=== PATIENT | male | born 1935 | race Caucasian/White ===

== ENCOUNTER → 2020-06-13 | Outpatient (CLI) | payer OTHER ==
[~2020-06-13] MED LIST: ACET325 PO; AMIODARONE HCL400 M2 PO; Amiodarone HCl200 MG PO; CEPH500 PO; Doxycycline Mo100 M1 PO; ELIQUIS5 M3 PO; ELIQUIS5 MG PO; FUROSEMIDE20 MG PO; KLOR-CON 1010 ME2 PO; METO50 PO; MIDO5 PO; PRED20 PO; PREDNISOLONE SO10 MG PO
[2020-06-13 13:13] LABS: Mean Corpuscular HGB 30.7 pg (26.0-34.0); Mean Corpuscular HGB Conc 31.6 g/dL (31.5-36.5); Mean Corpuscular Volume 97 fL (80-100); Mean Platelet Volume 9.5 fL (9.1-12.4); Platelet Count 291 K/mm3 (150-400); RDW Coefficient Variation 15.5 % (11.7-14.2); RDW Standard Deviation 55.8 fL (35.1-46.3); Red Blood Cell Count 3.91 M/mm3 (4.30-5.90); White Blood Cell Count 27.01 K/mm3 (4.00-11.30)
[2020-06-13 13:42] LABS: Albumin, Blood 2.8 g/dL (3.4-5.0); Albumin/Globulin Ratio 0.8 (0.8-1.8); Bilirubin, Total 0.6 mg/dL (0.1-1.0); Bun/Creatinine Ratio 16.5 (12.0-20.0); Calcium, Blood 9.1 mg/dL (8.5-10.1); Creatinine, Blood 1.33 mg/dL (0.60-1.20); Globulin, Blood 3.5 g/dL (2.2-4.0); Potassium, Blood 4.5 mmol/L (3.5-5.5); Total Protein, Blood 6.3 g/dL (6.4-8.2)
[2020-06-13 14:04] LABS: BASOPHILS ABSOLUTE MAN 0.27 K/mm3 (0.00-0.23); BASOPHILS PERCENT MAN 1 % (0-2); EOSINOPHILS PERCENT MAN 0 % (0-6); LYMPHOCYTES ABSOLUTE MAN 20.52 K/mm3 (0.84-5.20); LYMPHOCYTES PERCENT MAN 76 % (21-46); MONOCYTES ABSOLUTE MAN 1.35 K/mm3 (0.16-1.47); MONOCYTES PERCENT MAN 5 % (4-13); NEUTROPHILS ABSOLUTE MAN 4.86 K/mm3 (1.96-9.15); SEG NEUTROPHILS PERCENT MAN 18 % (41-73); TOTAL CELLS COUNTED 100
== END | disposition home or self-care (01) ==
LOC: PLD 12:46 → LAB SHORT 12:46
PROVIDERS: Physician Assistant
DX: D72.829 Elevated white blood cell count, unspecified (principal); R10.84 Generalized abdominal pain; R19.07 Generalized intra-abdominal and pelvic swelling, mass and lump; K46.0 Unspecified abdominal hernia with obstruction, without gangrene
CPT/HCPCS: 80053; 83690; 85025; 87077; 87086; 87186

== ENCOUNTER 2020-09-21 14:47 | Emergency (ER) | payer OTHER ==
[~2020-09-21] VITALS: Ht 177.8 cm; Wt 68.0 kg
[2020-09-21] MEDS ORDERED: PRED20 PO (15:20)
[2020-09-21] MEDS ORDERED: KLOR-CON 1010 ME2 PO (15:21)
[2020-09-21] MEDS ORDERED: FUROSEMIDE20 MG PO (15:21)
[2020-09-21 16:20] LABS: Hematocrit 30.9 % (37.0-53.0); Hemoglobin 9.7 g/dL (13.5-17.5); Mean Corpuscular HGB 31.8 pg (26.0-34.0); Mean Corpuscular HGB Conc 31.4 g/dL (31.5-36.5); Mean Corpuscular Volume 101 fL (80-100); Mean Platelet Volume 10.4 fL (9.1-12.4); Platelet Count 211 K/mm3 (150-400); RDW Coefficient Variation 18.6 % (11.7-14.2); RDW Standard Deviation 68.7 fL (35.1-46.3); Red Blood Cell Count 3.05 M/mm3 (4.30-5.90); White Blood Cell Count 19.32 K/mm3 (4.00-11.30)
[2020-09-21 16:29] LABS: Anion Gap 1 mmol/L (6-16); Blood Urea Nitrogen 24 mg/dL (8-24); Bun/Creatinine Ratio 24.5 (12.0-20.0); CO2, Blood 33 mmol/L (21-32); Calcium, Blood 7.9 mg/dL (8.5-10.1); Chloride, Blood 103 mmol/L (98-108); Creatinine, Blood 0.98 mg/dL (0.60-1.20); Glomerular Filtration Rate >60 (60-); Glucose, Blood 105 mg/dL (70-99); Potassium, Blood 4.8 mmol/L (3.5-5.5); Sodium, Blood 137 mmol/L (136-145)
[2020-09-21 16:40] LABS: International Normalized Ratio 1.11; Prothrombin Time Results 11.9 Sec (9.7-11.5)
[2020-09-21 17:03] LABS: BAND PERCENT MAN 2 % (0-8); BASOPHILS PERCENT MAN 0 % (0-2); EOSINOPHILS PERCENT MAN 0 % (0-6); LYMPHOCYTES ABSOLUTE MAN 15.84 K/mm3 (0.84-5.20); LYMPHOCYTES PERCENT MAN 82 % (21-46); MONOCYTES PERCENT MAN 0 % (4-13); NEUTROPHILS ABSOLUTE MAN 3.47 K/mm3 (1.96-9.15); SEG NEUTROPHILS PERCENT MAN 16 % (41-73); TOTAL CELLS COUNTED 100
[2020-09-21] MEDS ORDERED: ELIQUIS5 MG PO (17:13)
== END 2020-09-21 17:37 | disposition home or self-care (01) ==
LOC: ER 14:47
PROVIDERS: Emergency Medicine
DX: I82.401 Acute embolism and thrombosis of unspecified deep veins of right lower extremity (principal); Z88.8 Allergy status to other drugs, medicaments and biological substances; Z79.52 Long term (current) use of systemic steroids; C83.08 Small cell B-cell lymphoma, lymph nodes of multiple sites; R22.41 Localized swelling, mass and lump, right lower limb; I82.411 Acute embolism and thrombosis of right femoral vein
CPT/HCPCS: 36415; 80048; 85025; 85610; 85730; 93005; 93010; 93971; 99283-25; A9270

== ENCOUNTER 2020-09-24 10:35 | Emergency (ER) | payer OTHER ==
[~2020-09-24] VITALS: Ht 177.8 cm; Wt 65.8 kg
[~2020-09-24 10:35] MED LIST changes: -ACET325 PO; -AMIODARONE HCL400 M2 PO; -Amiodarone HCl200 MG PO; -CEPH500 PO; -Doxycycline Mo100 M1 PO; -ELIQUIS5 M3 PO; -METO50 PO; -MIDO5 PO; -PREDNISOLONE SO10 MG PO
[2020-09-24 11:00] LABS: Hematocrit 34.1 % (37.0-53.0); Hemoglobin 10.6 g/dL (13.5-17.5); Mean Corpuscular HGB Conc 31.1 g/dL (31.5-36.5); Mean Corpuscular Volume 103 fL (80-100); Mean Platelet Volume 10.5 fL (9.1-12.4); Platelet Count 177 K/mm3 (150-400); RDW Coefficient Variation 19.1 % (11.7-14.2); RDW Standard Deviation 73.3 fL (35.1-46.3); Red Blood Cell Count 3.31 M/mm3 (4.30-5.90); White Blood Cell Count 19.24 K/mm3 (4.00-11.30)
[2020-09-24 11:14] LABS: Alanine Aminotransfer (ALT/SGP 37 U/L (12-78); Albumin, Blood 2.8 g/dL (3.4-5.0); Alk Phos 144 U/L (50-136); Anion Gap 4 mmol/L (6-16); Aspartate Aminotrans (AST/SGOT 22 U/L (12-37); Blood Urea Nitrogen 23 mg/dL (8-24); Bun/Creatinine Ratio 23.8 (12.0-20.0); CO2, Blood 31 mmol/L (21-32); Calcium, Blood 7.9 mg/dL (8.5-10.1); Chloride, Blood 103 mmol/L (98-108); Creatinine, Blood 0.97 mg/dL (0.60-1.20); Globulin, Blood 2.8 g/dL (2.2-4.0); Glomerular Filtration Rate >60 (60-); Glucose, Blood 93 mg/dL (70-99); Sodium, Blood 138 mmol/L (136-145); Total Protein, Blood 5.6 g/dL (6.4-8.2); Troponin I <0.015 ng/mL (0.000-0.040)
[2020-09-24 11:45] LABS: BASOPHILS PERCENT MAN 0 % (0-2); EOSINOPHILS PERCENT MAN 0 % (0-6); LYMPHOCYTES ABSOLUTE MAN 13.08 K/mm3 (0.84-5.20); MONOCYTES ABSOLUTE MAN 1.34 K/mm3 (0.16-1.47); MONOCYTES PERCENT MAN 7 % (4-13); NEUTROPHILS ABSOLUTE MAN 4.81 K/mm3 (1.96-9.15); SEG NEUTROPHILS PERCENT MAN 25 % (41-73); TOTAL CELLS COUNTED 100
[2020-09-24 11:51] LABS: LYMPHOCYTES PERCENT MAN 68 % (21-46)
== END 2020-09-24 12:55 | disposition home or self-care (01) ==
LOC: ER 10:35
PROVIDERS: Emergency Medicine
DX: R55 Syncope and collapse (principal); Z79.899 Other long term (current) drug therapy
CPT/HCPCS: 36415; 70450; 71045; 80053; 84484; 85025; 93005; 93010; 99285-25; J7030

== ENCOUNTER 2020-09-26 15:47 | Observation (INO) | payer OTHER ==
[~2020-09-26] VITALS: Ht 172.7 cm; Wt 66.9 kg
[2020-09-26 17:31] LABS: Hematocrit 26.9 % (37.0-53.0); Hemoglobin 8.8 g/dL (13.5-17.5); Mean Corpuscular HGB 32.7 pg (26.0-34.0); Mean Corpuscular HGB Conc 32.7 g/dL (31.5-36.5); Mean Corpuscular Volume 100 fL (80-100); Mean Platelet Volume 10.3 fL (9.1-12.4); Platelet Count 145 K/mm3 (150-400); RDW Coefficient Variation 18.8 % (11.7-14.2); RDW Standard Deviation 68.6 fL (35.1-46.3); Red Blood Cell Count 2.69 M/mm3 (4.30-5.90); White Blood Cell Count 15.18 K/mm3 (4.00-11.30)
[2020-09-26 17:43] LABS: International Normalized Ratio 1.27; Prothrombin Time Results 13.5 Sec (9.7-11.5)
[2020-09-26 18:01] LABS: Alanine Aminotransfer (ALT/SGP 38 U/L (12-78); Albumin, Blood 2.3 g/dL (3.4-5.0); Albumin/Globulin Ratio 0.9 (0.8-1.8); Alk Phos 134 U/L (50-136); Anion Gap 4 mmol/L (6-16); Aspartate Aminotrans (AST/SGOT 24 U/L (12-37); Bilirubin, Total 1.1 mg/dL (0.1-1.0); Blood Urea Nitrogen 21 mg/dL (8-24); Bun/Creatinine Ratio 22.9 (12.0-20.0); CO2, Blood 27 mmol/L (21-32); Calcium, Blood 7.3 mg/dL (8.5-10.1); Chloride, Blood 105 mmol/L (98-108); Creatinine, Blood 0.92 mg/dL (0.60-1.20); Globulin, Blood 2.6 g/dL (2.2-4.0); Glomerular Filtration Rate >60 (60-); Glucose, Blood 101 mg/dL (70-99); Potassium, Blood 4.4 mmol/L (3.5-5.5); Sodium, Blood 136 mmol/L (136-145); Total Protein, Blood 4.9 g/dL (6.4-8.2); Troponin I 0.031 ng/mL (0.000-0.040)
[2020-09-26 19:13] LABS: BASOPHILS PERCENT MAN 0 % (0-2); EOSINOPHILS PERCENT MAN 0 % (0-6); LYMPHOCYTES ABSOLUTE MAN 9.71 K/mm3 (0.84-5.20); LYMPHOCYTES PERCENT MAN 64 % (21-46); MONOCYTES ABSOLUTE MAN 0.75 K/mm3 (0.16-1.47); MONOCYTES PERCENT MAN 5 % (4-13); SEG NEUTROPHILS PERCENT MAN 31 % (41-73); TOTAL CELLS COUNTED 100
[2020-09-26] MEDS ORDERED: ELIQUIS5 M3 PO (20:37)
[2020-09-27 02:20] LABS: Source, Urine Clean Catch
[2020-09-27 02:26] LABS: Bilirubin, Urine Neg (Neg); Blood, Urine 1+ (Neg); Glucose Qualitative, Urine Neg (Neg); Ketones, Urine 1+ (Neg); Leukocyte Esterase, Urine 3+ (Neg); Nitrite, Urine Neg (Neg); Protein, Urine 1+ (Neg); Urobilinogen, Urine NORM (Normal)
[2020-09-27 02:34] LABS: Appearance, Urine Hazy (Clear); Color, Urine Pale Yellow (P-Yellow)
[2020-09-27 02:35] LABS: Bacteria Many /hpf; Red Blood Cells, Urine 0-2 /hpf (0-2); Squamous Epithelial Cells Not Seen /hpf (Few); White Blood Cells, Urine 50-100 /hpf (0-5)
--- NOTE | 2020-09-27 06:40 | NUR ---
SHIFT SUMMARY PT WAS A NEW ADMIT DURING THE NIGHT, ARRIVING ON THE FLOOR AT . HE WAS ADMITTED FOR RECURRENT SVT. SHORTLY AFTER ARRIVING ON THE FLOOR, PT HEART RATE INCREASED FROM THE 80 TO 160S POSSIBLE A-FLUTTER. BP WAS 97/59. PT DENIED ANY CHEST PAIN, SOB OR HEART PALPITATIONS AT THAT TIME. PT WAS STARTED ON IV DILTIAZEM DRIP, AND HOSPITALIST DR RODARTE INFORMED. PT WAS SWITCHED FROM IV DILTIAZEM TO AMIODORONE DRIP WITH BOLUS FIRST. PT CONVERTED BACK TO NSR APPROXIMATELY 0220, AMIODORONE DRIP CONTINUED. BP REMAINS STABLE AT 90-100S SYSTOLIC. VITAL SIGNS OTHERWISE STABLE. NO C/O PAIN, NAUSEA OR SOB. NO OTHER ACUTE CHANGES IN PT CONDITION NOTED SINCE ADMISSION. WILL CONTINUE TO MONITOR AND TREAT PER EMAR UNTIL HAND OFF TO DAY SHIFT RN.
--- NOTE | 2020-09-27 10:08 | NUR ---
Echocardiogram completed.
--- NOTE | 2020-09-27 10:54 | NUR ---
AMIODARONE CLARIFICATION IV AMIO GTT WAS DC'D AT 1031 ON 09/27/20 AND PO AMIODARONE WAS SCHEDULED TO START AT 2100 ON 09/27/20. DR[address] Rita BENAVIDEZ WANTS THE IV GTT STOPPED AT 1300 AND THE PO AMIODARONE TO BEGIN NOW 1100. SWATI SIGALA WILL CARRY OUT THIS ORDER, IT IS REFLECTED IN THE EMAR.
--- NOTE | 2020-09-27 15:39 | NUR ---
UPDATE PT AND FAMILY HAS EXPRESSED CONCERN ABOUT THE PT'S ABILITY TO CARE FOR HIMSELF AT HOME. PT HAS BEEN LAX IN REGARDS TO HYGIENE AND BEING PHYSICALLY ACTIVE, STATING THAT HE JUST SEEMS TOO FATIGUED TO CARE. PT IS AGREEABLE TO WORKING WITH PHYSICAL THERAPY AND OCCUPATIONAL THERAPY AND IS AGREEABLE TO POSSIBLY SENDING PT HOME WITH HOME HEALTH DEPENDING ON INPATIENT PHYSICAL THERAPY RECCOMENDATION. DISCHARGE PLANNING HAS BEEN MADE AWARE OF PT AND FAMILY'S CONCERNS AND DESIRES FOR HOME HEALTH
--- NOTE | 2020-09-27 19:04 | NUR ---
SHIFT SUMMARY PT HAS BEEN RESTING IN BED THROUGHOUT MOST OF THE SHIFT. PT WAS ABLE TO VISIT WITH FAMILY THIS EVENING. PT HAS AGREED TO WORK WITH PHYSICAL THERAPY AND OCCUPATIONAL THERAPY, PENDING THE EVALUATION FROM BOTH WILL HELP DETERMINE HOME HEALTH AND PT/OT SERVICES AT HOME FOR THE PT. PT HAS MAINTAINED SR AND HR IN 60-70s WITH ORAL AMIODARONE, THE GTT WAS TURNED OFF AT 1300. PT DENIES CHEST PAIN BUT REPORTS FATIGUE AND INCREASED WEAKNESS. PT IS ABLE TO USE THE WALKER WITH 1 PERSON TO TRANSFER TO THE BATHROOM. PT IS RESTING IN BED AT THIS TIME
[2020-09-28 07:29] LABS: Hematocrit 28.6 % (37.0-53.0); Hemoglobin 9.2 g/dL (13.5-17.5); Mean Corpuscular HGB 31.8 pg (26.0-34.0); Mean Corpuscular HGB Conc 32.2 g/dL (31.5-36.5); Mean Corpuscular Volume 99 fL (80-100); Mean Platelet Volume 9.5 fL (9.1-12.4); Platelet Count 123 K/mm3 (150-400); RDW Coefficient Variation 18.4 % (11.7-14.2); RDW Standard Deviation 67.1 fL (35.1-46.3); Red Blood Cell Count 2.89 M/mm3 (4.30-5.90); White Blood Cell Count 13.65 K/mm3 (4.00-11.30)
[2020-09-28 07:48] LABS: Anion Gap 5 mmol/L (6-16); Blood Urea Nitrogen 17 mg/dL (8-24); Bun/Creatinine Ratio 18.6 (12.0-20.0); CO2, Blood 24 mmol/L (21-32); Calcium, Blood 6.9 mg/dL (8.5-10.1); Chloride, Blood 104 mmol/L (98-108); Creatinine, Blood 0.91 mg/dL (0.60-1.20); Glomerular Filtration Rate >60 (60-); Glucose, Blood 93 mg/dL (70-99); Sodium, Blood 133 mmol/L (136-145)
[2020-09-28 09:20] LABS: BASOPHILS PERCENT MAN 0 % (0-2); EOSINOPHILS PERCENT MAN 0 % (0-6); LYMPHOCYTES ABSOLUTE MAN 8.59 K/mm3 (0.84-5.20); LYMPHOCYTES PERCENT MAN 63 % (21-46); MONOCYTES ABSOLUTE MAN 0.54 K/mm3 (0.16-1.47); MONOCYTES PERCENT MAN 4 % (4-13); SEG NEUTROPHILS PERCENT MAN 33 % (41-73); TOTAL CELLS COUNTED 100
--- NOTE | 2020-09-28 10:38 | NUR ---
PT ALERT AND ORIENTED X4. ON ROOM AIR. TELE SHOWING SINUS WITH PVC'S AND HR 95. DENIES CHEST PAIN/PRESSURE. VITAL SIGNS STABLE WITH SOFT BP. NEURO WNL. SKIN FRAGILE AND ECCHYMOTIC/SCABS PRESENT THROUGHOUT. USING URINAL. UP TO CHAIR THIS AM. PT AND OT IN TO SEE PT. PT DENIES PAIN, AND STATES HE IS FEELING WEAK OVERALL. CALL LIGHT IN REACH, WILL CONTINUE TO MONITOR.
--- NOTE | 2020-09-28 17:44 | NUR ---
SHIFT SUMMARY: PT REMAINS STABLE. VITAL SIGNS STABLE. NO ACUTE CHANGES. TEMP PEAKED THIS AFTERNOON AT 100.7, NEW ORDERS FOR TYLENOL. TEMPERATURE IMPROVING. BP REMAINS SOFTER BUT STABLE. ON ROOM AIR. PT AND OT IN TO EVAULATE. PT STATES HE IS JUST OVERALL FEELING WEAK. IV ANTIBIOTICS INFUSED. TELE SHOWING SINUS WITH HR IN THE 70'S. DENIES CHEST PAIN/PRESSURE. SPOKE WITH DAUGHTER MARIAA ON PHONE FOR UPDATE, WITH PATIENTS PERMISSION. PT EATING WELL. USING URINAL AT BEDSIDE, URINE BECOMING CLEARER THROUGHOUT THE SHIFT. CALL LIGHT IN REACH. BED REMAINED IN LOW LOCKED POSITION. WILL CONTINUE TO MONITOR AND REPORT OFF.
--- NOTE | 2020-09-28 19:58 | NUR ---
ASSUMED CARE OF PATIENT AT APPROXIMATELY 1905 FROM ARNULFO Mtz RN. PATIENT ALERT AND ORIENTED; FLAT AND WITHDRAWN. PATIENT DENIES PAIN, NUMBNESS, TINGLING, DIZZINESS AND NAUSEA. NSR W/ PVC'S ON TELE; OXYGEN SATURATION ABOVE 90% ON ROOM AIR. PIV S/L. ONE ASSIST W/ FWW TO USE URINAL ON SIDE OF BED. PATIENT CURRENTLY RESTING IN BED; CALL LIGHT IN REACH; BED IN LOWEST POSISTION; BED ALARM ON
--- NOTE | 2020-09-29 06:01 | NUR ---
PATIENT SLEPT ABOUT NINE HOURS. VSS. NO ACUTE CHANGES
--- NOTE | 2020-09-29 09:23 | NUR ---
PT ALERT AND ORIENTED X4. FEELING OVERALL WEAK AND "RUN DOWN". VITAL SIGNS SHOWING SOFTER BP THIS AM WITH ELEVATED TEMP, TYLENOL GIVEN PER EMAR. TELE SHOWING SINUS WITH PAC'S AND PVC'S. HR 70-80'S. DENIES CHEST PAIN/PRESSURE. COMPLAINS OF RLQ PAIN, DR. HOSKINS AWARE. ANTIBIOTICS INFUSED. LUNGS SOUNDING CLEAR. SKIN VERY FRAGILE AND SCABS/BRUISING SCATTERED THROUGHOUT. 2+ EDEMA IN BLE. 1 PERSON ASSIST WITH GAIT BELT AND FRONT WHEEL WALKER FOR SAFETY. USING URINAL AT BEDSIDE, FREQUENT AMOUNTS OF URINE. CALL LIGHT IN REACH. BED IN LOW LOCKED POSITION AND FALL PREVENTION PRECAUTIONS IN PLACE. WILL CONTINUE TO MONITOR.
[2020-09-29] MEDS ORDERED: METO50 PO (10:48)
[2020-09-29] MEDS ORDERED: AMIODARONE HCL400 M2 PO (10:48)
--- NOTE | 2020-09-29 11:35 | NUR ---
PT UP FOR WALK AROUND UNIT. UPON RETURNING TO ROOM PT HR INCREASED TO 145 AND SUSTAINED 145 FOR 3 MIN. AFTER 3 MIN PT ABLE TO RECOVER ON OWN AND HR NOW MAINTAINS IN THE 70'S. PT DENIES FEELING ANY SYMPTOMS. DENIES DIZZINESS, PALPITATIONS OR SOB. CLAIMS HE FEELS WEAK WHEN UP WALKING. STEADY ON FEET USING GAIT BELT AND FRONT WHEEL WALKER FOR SAFETY. VITAL SIGNS SHOWING SOFT BP. WILL COTNINUE TO MONITOR.
--- NOTE | 2020-09-29 17:15 | NUR ---
SHIFT SUMMARY: PT REMAINS ALERT AND ORIENTED X4. ON ROOM AIR SATING ABOVE 94%. TELE SHOWING SINUS WITH HR 70-80'S. DENIES CHEST PAIN/PRESSURE. VITAL SIGNS SHOWING SOFTER BP WITH MAP ABOVE 65. NEW IV PLACED TO LEFT AC, SALINE LOCKED AND FLUSHING WELL. COMPLAINS OF CONSTANT NEED TO URINATE, USING URINAL AT BEDSIDE. PT IN TO WORK WITH PT. PT MOTIVATED IN ROOM, WORKING ON LEG EXERCISES THROUGHOUT THE DAY. EATING WELL. IN TO VISIT. SEE PREVIOUS NOTES FOR UPDATES THROUGHOUT THE SHIFT. URINE CULTURE RESULTED, IV ANTIBIOTICS INFUSED THIS AM. CALL LIGHT REMAINS IN REACH. BED IN LOW LOCKED POSITION AND PT CALLING APPROPRIATELY. WILL CONTINUE TO MONITOR AND REPORT OFF.
--- NOTE | 2020-09-29 23:05 | NUR ---
ASSUMED CARE OF PATIENT AT APPROXIMATELY 1915 FROM ARNULFO Mtz RN. PATIENT ALERT AND ORIENTED; FLAT AND WITHDRAWN. PATIENT DENIES PAIN, NUMBNESS, TINGLING, DIZZINESS AND NAUSEA. PATIENT REPORTS HE FEELS COMFORTABLE TONIGHT AND ISNT COLD. NSR/ST W/ PVC'S ON TELE; OXYGEN SATURATION ABOVE 90% ON ROOM AIR. PIV S/L. ONE ASSIST W/ FWW TO USE URINAL ON SIDE OF BED. PATIENT CURRENTLY RESTING IN BED; CALL LIGHT IN REACH; BED IN LOWEST POSISTION; BED ALARM ON
[2020-09-30 04:14] LABS: BASOPHILS ABSOLUTE AUTO 0.01 K/mm3 (0.00-0.23); BASOPHILS PERCENT AUTO 0 % (0-2); EOSINOPHILS PERCENT AUTO 0 % (0-6); Hematocrit 28.8 % (37.0-53.0); Hemoglobin 9.3 g/dL (13.5-17.5); Mean Corpuscular HGB 31.4 pg (26.0-34.0); Mean Corpuscular HGB Conc 32.3 g/dL (31.5-36.5); Mean Corpuscular Volume 97 fL (80-100); Mean Platelet Volume 10.1 fL (9.1-12.4); Platelet Count 108 K/mm3 (150-400); RDW Coefficient Variation 17.8 % (11.7-14.2); RDW Standard Deviation 63.6 fL (35.1-46.3); Red Blood Cell Count 2.96 M/mm3 (4.30-5.90); White Blood Cell Count 12.93 K/mm3 (4.00-11.30)
[2020-09-30 04:20] LABS: IMMATURE GRAN ABSOLUTE AUTO 0.09 K/mm3 (0.00-0.10); IMMATURE GRAN PERCENT AUTO 1 % (0-1); LYMPHOCYTES ABSOLUTE AUTO 6.17 K/mm3 (0.84-5.20); LYMPHOCYTES PERCENT AUTO 48 % (21-46); MONOCYTES ABSOLUTE AUTO 2.81 K/mm3 (0.16-1.47); MONOCYTES PERCENT AUTO 22 % (4-13); NEUTROPHILS ABSOLUTE AUTO 3.85 K/mm3 (1.96-9.15); NEUTROPHILS PERCENT AUTO 30 % (41-73)
[2020-09-30 04:36] LABS: Anion Gap 5 mmol/L (6-16); Blood Urea Nitrogen 20 mg/dL (8-24); Bun/Creatinine Ratio 21.4 (12.0-20.0); CO2, Blood 25 mmol/L (21-32); Calcium, Blood 7.3 mg/dL (8.5-10.1); Chloride, Blood 104 mmol/L (98-108); Creatinine, Blood 0.93 mg/dL (0.60-1.20); Glomerular Filtration Rate >60 (60-); Glucose, Blood 99 mg/dL (70-99); Magnesium, Blood 1.9 mg/dL (1.6-2.4); Phosphorus, Blood 2.6 mg/dL (2.5-4.9); Potassium, Blood 4.2 mmol/L (3.5-5.5); Sodium, Blood 134 mmol/L (136-145)
--- NOTE | 2020-09-30 06:10 | NUR ---
NO ACUTE CHANGES. PATIENT SLEPT ABOUT TEN HOURS LAST NIGHT. NO ACUTE CHANGES.
[2020-09-30] MEDS ORDERED: Amiodarone HCl200 MG PO (07:29)
--- NOTE | 2020-09-30 18:10 | NUR ---
SHIFT SUMMARY: PT CONTINUES A&OX4 T/OUT SHIFT AND MAINTAINING O2 SATS >90% ON ROOM AIR. PT FOUND TO HAVE A RUN OF SVT, LASTING A COUPLE MINUTES, THIS AM WHILE AMBULATING TO RESTROOM. HR RETURNS TO MID 80s QUICKLY AND HR IN 70s MOST OF SHIFT. SOFT BP NOTED T/OUT ADMISSION STAY AT TIMES. DR BENAVIDEZ TO BEDSIDE THIS AM, LOPRESSOR DOSE CHANGED, PT ENCOURAGED TO MOVE AROUND ROOM TOLERATED. THIS AM, PT REQUESTING TO WALK AROUND ROOM, THIS RN AT BEDSIDE, PT TOLERATES AMBULATION WITH FWW, ALSO NOTED TO BE DOING LEG EXERCISES WHILE IN BED. BY LATE MORNING, PT BECOMES LETHARGIC, STATES EXHAUSTION WHICH CONTINUES INTO AFTERNOON. PT STATES "I THINK I OVERDID IT". SOFT BP CONTINUES. DR BENAVIDEZ NOTIFIED, DECISION MADE TO KEEP PT ANOTHER NIGHT. FAMILY NOTIFIED VIA TELEPHONE, PT'S DAUGHTER STATES THEY HAVE BEEN DEALING WITH A SIMILAR SITUATION AT HOME WHERE PT WILL WORK HARD ONE DAY AND BE EXHAUSTED FOR A COUPLE DAYS. CONVERSATION WAS HAD ABOUT BENEFIT OF HOME HEALTH AND PHYSICAL THERAPY. AT THIS TIME, PT SITTING UP IN BED AND STATES SOME IMPROVEMENT OF TIREDNESS, ATE MOST OF HIS DINNER. WILL CONTINUE TO MONITOR AND TREAT ACCORDINGLY UNTIL CHANGE OF SHIFT.
--- NOTE | 2020-09-30 23:41 | NUR ---
ASSUMED CARE OF PATIENT AT APPROXIMATELY 1910 FROM ZOE Reinoso RN. PATIENT ALERT AND ORIENTED; FLAT AND WITHDRAWN. PATIENT DENIES PAIN, NUMBNESS, TINGLING, DIZZINESS AND NAUSEA. NSR/ST W/ PVC'S ON TELE; OXYGEN SATURATION ABOVE 90% ON ROOM AIR. PIV S/L. ONE ASSIST W/ FWW TO USE URINAL ON SIDE OF BED. PATIENT CURRENTLY RESTING IN BED; CALL LIGHT IN REACH; BED IN LOWEST POSISTION; BED ALARM ON
--- NOTE | 2020-10-01 06:34 | NUR ---
PATIENT SLEPT ABOUT NINE HOURS LAST NIGHT. VSS. NO ACUTE CHANGES TO REPORT.
[2020-10-01] MEDS ORDERED: CEPH500 PO (13:22)
--- NOTE | 2020-10-01 15:47 | NUR ---
PT DISCHARGE: PT CONTINUES A&OX4 T/OUT DAY, MAINTAINS SATS >92% ON ROOM AIR, SR ON MONITOR. PT UP AND AMBULATING TO RESTROOM, AMBULATES IN ARAMBULA WITH PHYSICAL THERAPY, TOLERATES BOTH WELL. PT SHOWS GOOD APPETITE, ABLE TO CARRY CONVERSATION WITH STAFF AND FAMILY ABOUT PLAN FOR SAFETY AT HOME. VSS T/OUT PUMP INSTALLER AND TODAY. PT CLEARED FOR DC HOME. PT AND FAMILY PROVIDED WITH DC INSTRUCTIONS/PAPERWORK. PT DEPARTS IN NAD.
== END 2020-10-01 15:40 | disposition home health service (06) ==
LOC: ER 15:47 → ERHOLD 15:48 → PCU 09-27 00:27 → ENPENDDIS 10-01 12:28 → PCU 10-01 15:40
PROVIDERS: Emergency Medicine; Internal Medicine; Student in an Organized Health Care Education/Training Program; ADMIT Internal Medicine
DX: I47.1 Supraventricular tachycardia (principal); N39.0 Urinary tract infection, site not specified; B96.1 Klebsiella pneumoniae [K. pneumoniae] as the cause of diseases classified elsewhere; I10 Essential (primary) hypertension; J90 Pleural effusion, not elsewhere classified; I95.9 Hypotension, unspecified; I70.0 Atherosclerosis of aorta; I08.1 Rheumatic disorders of both mitral and tricuspid valves; R79.0 Abnormal level of blood mineral; E86.0 Dehydration; D64.9 Anemia, unspecified; K59.00 Constipation, unspecified; Z66 Do not resuscitate; Z79.01 Long term (current) use of anticoagulants; Z85.72 Personal history of non-Hodgkin lymphomas; Z86.718 Personal history of other venous thrombosis and embolism
CPT/HCPCS: 36415; 71046; 80048; 80053; 80069; 81001; 83690; 83735; 83880; 84443; 84484; 85025; 85610; 87077; 87086; 87186; 93005; 93010; 93306; 96365; 96366; 96367; 96374; 96375; 96376; 97110; 97116; 97162; 97166; 97530; 99285-25; A9270; G0378; J0153; J0282; J0696; J7030; J7060; J7512

== ENCOUNTER 2020-10-13 17:29 | Inpatient (IN) | payer OTHER ==
[~2020-10-13] VITALS: Ht 177.8 cm; Wt 70.4 kg
[~2020-10-13 17:29] MED LIST changes: +AMIODARONE HCL400 M2 PO; +Amiodarone HCl200 MG PO; +CEPH500 PO; +ELIQUIS5 M3 PO; +METO50 PO
[2020-10-13 17:55] LABS: Hematocrit 29.1 % (37.0-53.0); Hemoglobin 9.3 g/dL (13.5-17.5); Mean Corpuscular HGB 32.1 pg (26.0-34.0); Mean Corpuscular Volume 100 fL (80-100); Mean Platelet Volume 9.7 fL (9.1-12.4); Platelet Count 142 K/mm3 (150-400); RDW Coefficient Variation 19.2 % (11.7-14.2); RDW Standard Deviation 71.8 fL (35.1-46.3); White Blood Cell Count 11.79 K/mm3 (4.00-11.30)
[2020-10-13 17:58] LABS: Source, Urine Clean Catch
[2020-10-13 18:04] LABS: Bilirubin, Urine Neg (Neg); Blood, Urine 2+ (Neg); Glucose Qualitative, Urine Neg (Neg); Ketones, Urine Neg (Neg); Leukocyte Esterase, Urine 2+ (Neg); Nitrite, Urine Neg (Neg); Protein, Urine 2+ (Neg); Specific Gravity, Urine 1.015 (1.003-1.022); Urobilinogen, Urine 2+ (Normal)
[2020-10-13 18:15] LABS: Appearance, Urine Hazy (Clear); Color, Urine Yellow (P-Yellow)
[2020-10-13 18:16] LABS: Bacteria Many /hpf; Red Blood Cells, Urine 0-2 /hpf (0-2); Squamous Epithelial Cells Few /hpf (Few)
[2020-10-13 18:19] LABS: Alanine Aminotransfer (ALT/SGP 31 U/L (12-78); Albumin, Blood 2.4 g/dL (3.4-5.0); Albumin/Globulin Ratio 0.8 (0.8-1.8); Alk Phos 220 U/L (50-136); Anion Gap 4 mmol/L (6-16); Aspartate Aminotrans (AST/SGOT 20 U/L (12-37); Bilirubin, Total 1.2 mg/dL (0.1-1.0); Blood Urea Nitrogen 22 mg/dL (8-24); Bun/Creatinine Ratio 18.5 (12.0-20.0); CO2, Blood 27 mmol/L (21-32); Calcium, Blood 7.8 mg/dL (8.5-10.1); Chloride, Blood 105 mmol/L (98-108); Creatinine, Blood 1.19 mg/dL (0.60-1.20); Globulin, Blood 3.1 g/dL (2.2-4.0); Glomerular Filtration Rate >60 (60-); Glucose, Blood 94 mg/dL (70-99); Potassium, Blood 4.8 mmol/L (3.5-5.5); Sodium, Blood 136 mmol/L (136-145); Total Protein, Blood 5.5 g/dL (6.4-8.2)
[2020-10-13 18:47] LABS: BASOPHILS ABSOLUTE MAN 0.11 K/mm3 (0.00-0.23); BASOPHILS PERCENT MAN 1 % (0-2); EOSINOPHILS PERCENT MAN 0 % (0-6); LYMPHOCYTES % ATYPICAL MANUAL 6 % (0-0); LYMPHOCYTES ABSOLUTE MAN 7.07 K/mm3 (0.84-5.20); LYMPHOCYTES PERCENT MAN 54 % (21-46); MONOCYTES ABSOLUTE MAN 0.23 K/mm3 (0.16-1.47); MONOCYTES PERCENT MAN 2 % (4-13); NEUTROPHILS ABSOLUTE MAN 4.36 K/mm3 (1.96-9.15); SEG NEUTROPHILS PERCENT MAN 37 % (41-73); TOTAL CELLS COUNTED 100
[2020-10-14] MEDS ORDERED: PREDNISOLONE SO10 MG PO (02:35)
--- NOTE | 2020-10-14 02:40 | NUR ---
ASSUMED CARE NOTE: ASSUMED CARE OF PT AT 0210, RECEVIED REPORT FROM ONELIA LONGORIA. PT IS ALERT AND ORIENTEDX4, ABLE TO RECALL RECENT AND REMOTE EVENTS. PT IS ON 2L OF O2 VIA NC, SpO2 ABOVE 90% NO RESP DISTRESS NOTED. PT IS ON TELE MONITOR READING NSR WITH HR IN THE 70'S, SBP 100, MAP ABOVE 70. PITTING EDEMA TO BLE + 3. FAINT PULSES FELT TO BILAT PEDAL. PT DENIES CP, DIZZINESS, SOB. PT STS HE USES WALKER/CAN AT HOME, AND HAS FOUND IT DIFFICULT TO MOVE AROUND AT HOME OVER THE PAST FEW DAYS. REDNESS NOTED TO SACRUM, MEPELIX PLACED. PT EDUCATED ON HOW TO PREVENT PRESSURE ULCERS, PT WILL BE REMINDED AND ASSISTED WITH REPOSITIONS Q2HR. WILL CONTINUE TO MONITOR PT T/O SHIFT, BED AT LOWEST LEVEL, CALL LIGHT WITHIN REACH.
[2020-10-14 03:56] LABS: BASOPHILS ABSOLUTE AUTO 0.02 K/mm3 (0.00-0.23); BASOPHILS PERCENT AUTO 0 % (0-2); EOSINOPHILS PERCENT AUTO 0 % (0-6); Hematocrit 27.3 % (37.0-53.0); Hemoglobin 8.7 g/dL (13.5-17.5); Mean Corpuscular HGB 31.9 pg (26.0-34.0); Mean Corpuscular HGB Conc 31.9 g/dL (31.5-36.5); Mean Corpuscular Volume 100 fL (80-100); Mean Platelet Volume 9.4 fL (9.1-12.4); Platelet Count 123 K/mm3 (150-400); RDW Coefficient Variation 19.5 % (11.7-14.2); Red Blood Cell Count 2.73 M/mm3 (4.30-5.90); White Blood Cell Count 8.06 K/mm3 (4.00-11.30)
[2020-10-14 04:00] LABS: IMMATURE GRAN ABSOLUTE AUTO 0.04 K/mm3 (0.00-0.10); IMMATURE GRAN PERCENT AUTO 1 % (0-1); LYMPHOCYTES ABSOLUTE AUTO 2.35 K/mm3 (0.84-5.20); LYMPHOCYTES PERCENT AUTO 29 % (21-46); MONOCYTES ABSOLUTE AUTO 3.02 K/mm3 (0.16-1.47); MONOCYTES PERCENT AUTO 38 % (4-13); NEUTROPHILS ABSOLUTE AUTO 2.63 K/mm3 (1.96-9.15); NEUTROPHILS PERCENT AUTO 33 % (41-73)
[2020-10-14 04:15] LABS: Anion Gap 6 mmol/L (6-16); Blood Urea Nitrogen 21 mg/dL (8-24); Bun/Creatinine Ratio 19.3 (12.0-20.0); CO2, Blood 26 mmol/L (21-32); Calcium, Blood 7.3 mg/dL (8.5-10.1); Chloride, Blood 105 mmol/L (98-108); Creatinine, Blood 1.09 mg/dL (0.60-1.20); Glomerular Filtration Rate >60 (60-); Glucose, Blood 87 mg/dL (70-99); Sodium, Blood 137 mmol/L (136-145)
[2020-10-14 04:42] LABS: BAND PERCENT MAN 2 % (0-8); BASOPHILS PERCENT MAN 0 % (0-2); EOSINOPHILS PERCENT MAN 0 % (0-6); LYMPHOCYTES ABSOLUTE MAN 4.03 K/mm3 (0.84-5.20); LYMPHOCYTES PERCENT MAN 50 % (21-46); MONOCYTES ABSOLUTE MAN 0.48 K/mm3 (0.16-1.47); MONOCYTES PERCENT MAN 6 % (4-13); NEUTROPHILS ABSOLUTE MAN 3.22 K/mm3 (1.96-9.15); SEG NEUTROPHILS PERCENT MAN 38 % (41-73); TOTAL CELLS COUNTED 100
[2020-10-14 04:44] LABS: OTHER CELL PERCENT MAN 4 % (0-0)
--- NOTE | 2020-10-14 05:49 | NUR ---
SHIFT SUMMARY: PT CONTINUES TO BE ALERT AND ORIENTEDX3, USES CALL LIGHT TO COMMUNICATE NEEDS. PT IS ON 2L OF VIA NC, SPO2 ABOVE 90% WILL DESATURATE TO 85% SpO2 ON RA WHEN SLEEPING. PT IN NSR WITH HR 70'S. SBP IN THE 90'S MAP IN THE 70'S. NO CARDIAC SYMPTOMS. DENIES NAUSEA. PT USES URINAL AT BEDSED IND. WILL CONTINUE TO MONITOR PT UNTIL REPORT IS GIVEN TO ONCOMING SHIFT.
--- NOTE | 2020-10-14 10:33 | NUR ---
ALERT AND ORIENTED X4 THIS AM. ASKING QUESTIONS ABOUT HOPSITAL STAY AND INTERESTED IN CARE. ON 2 L O2 SATING 93-94%. DENIES SOB. DOES NOT NORMALLY WEAR O2 AT HOME. MEDICAL STATUS NO TELE. THIS AM RUNNING NORMAL SINUS WITH HR 70-80'S. BP SLIGHTLY HYPOTENSIVE, PER PATIENT THIS IS NORMAL. TEMP 99.1 THIS AM. TYLENOL GIVEN PER EMAR. BOWEL TONES PRESENT. PERIPHERAL PULSES PALPATED. 3+ EDEMA TO BILATERAL LOWER EXTREMITIES. SKIN OVERALL DRY AND FRAGILE. LEFT PANIAGUA SCAB. REDNESS TO COCCYX, MEPLIX IN PLACE FOR PREVENTION. PT DENIES OVERALL PAIN AND NUMBNESS/TINGLING. USING URINAL IN BED. 1 PERSON STAND BY ASSIST FOR SAFETY TO BSC. CALL LIGHT IN REACH. WILL CONTINUE TO MONITOR.
--- NOTE | 2020-10-14 12:50 | NUR ---
NO ACUTE CHANGES. TEMP STILL ELEVATED. NON PHARM INTERVENTIONS DONE TO REDUCE TEMP. WILL GIVE TYLENOL PER EMAR. INCENTIVE SPIROMETER EDUCATION PROVIDED. PHYSICAL THERAPY IN TO SEE PATIENT. TITRATED DOWN TO 1L O2. SATING 93-94%. WILL CONTINUE TO MONITOR AND ATTEMPT TO TIRATE FURTHER.
--- NOTE | 2020-10-14 17:19 | NUR ---
SHIFT SUMMARY: SEE PREVIOUS NOTES FOR UPDATES. TONIGHT PATIENT SLIGHTLY MORE CONFUSED ASKING WHAT DAY AND TIME IT WAS. PT THINKING IT WAS THURSDAY MORNING. NEURO CHECK COMPLETED AND WNL. EQUAL STRENGTH AND SENSATION. PUPILS EQUAL ROUND AND REACTIVE. USING URINAL IN BED. VITAL SIGNS SHOWING SLIGHTLY HYPOTENSIVE BLOOD PRESSURE, PER PATIENT THAT IS NORMAL. TEMP MAX TODAY 100.6. TYLENOL GIVEN PER EMAR AND NON PHARM MEASURES TAKEN SUCH BLANKET REMOVAL, COLD WASH CLOTHES AND ICE UNDER ARMS. ANTIBIOTICS INFUSED THIS SHIFT. PT UP IN BED EATING DINNER AT THIS TIME. DENIES PAIN. WILL CONTINUE TO MONITOR AND REPORT OFF. CALL LIGHT IN REACH AND BED IN LOW LOCKED POSITION.
--- NOTE | 2020-10-14 18:43 | NUR ---
attemtped to see pt will return.
--- NOTE | 2020-10-14 19:30 | NUR ---
ASSUMED CARE OF PT, HE IS RESTING QUIETLY RECLINING IN BED, DENIES NEEDS AT THIS TIME.
--- NOTE | 2020-10-15 05:41 | NUR ---
PT RESTS QUIETLY THROUGHOUT NOC, DENIES NEEDS AT ROUNDS. HE REMAINS ALERT AND ORIENTED. PT BP WAS NOTED BORDERLINE FOR HOLDING METOPROLOL AT HS, BUT MAINTAINED AFTER ADMINISTRATION WITHOUT CHANGES. NO ACUTE CHANGES THIS SHIFT.
--- NOTE | 2020-10-15 08:30 | NUR ---
INITIAL ASSESSMENT: PATIENT RESTING COMFORABLY IN BED AWAKE, A+O X3 PT DENIES PAIN AT THIS TIME. HRR. LS DIM IN THE BASES, BIOX WNL ON 1L OXYGEN, PT DENIES COUGH. BT+. PPP. BLOOD PRESSURE LOW THIS AM 81/41 ON THE RIGHT ARM AND 85/46 ON THE LEFT. NOTIFIED, SEE NEW ORDERS. PT STATES "I AM TIRED TODAY." PT ALSO REQUESTING TO GET UP AND MOVE AROUND, I TALKED WITH HIM ABOUT HIS BLOOD PRESSURE AND WE WOULD WAIT UNTIL I RECHECK HIM AFTER ROUNDS. PATIENT DENIES OTHER NEEDS AT THIS TIME. CALL LIGHT IN REACH. WILL CONTINUE TO MONITOR.
--- NOTE | 2020-10-15 10:53 | NUR ---
MIDORINE GIVEN FOR HYPOTENSION AND IVF HUNG. PATIENT IS RESTING WITH EYES CLOSED, DENIES NEEDS AT THIS TIME. CALLED AND GIVEN UPDATE, SHE IS REQUESTING THAT WE NOTIFY PATIENTS PCP DR. RAMON ON CARE PLAN. CALL LIGHT IN REACH, WILL CONTINUE TO MONITOR.
[2020-10-15 16:47] LABS: Hematocrit 26.5 % (37.0-53.0); Hemoglobin 8.7 g/dL (13.5-17.5); Mean Corpuscular HGB 32.5 pg (26.0-34.0); Mean Corpuscular HGB Conc 32.8 g/dL (31.5-36.5); Mean Corpuscular Volume 99 fL (80-100); Platelet Count 122 K/mm3 (150-400); RDW Standard Deviation 69.5 fL (35.1-46.3); Red Blood Cell Count 2.68 M/mm3 (4.30-5.90); White Blood Cell Count 10.88 K/mm3 (4.00-11.30)
--- NOTE | 2020-10-15 17:00 | NUR ---
PATIENT HAS DONE WELL THROUGHOUT THE AFTERNOON. THE MIDORINE HAS MAINTAINED HIS BLOOD PRESSURE. OXYGEN INCREASED TO 2L VIA NC, BIOX 91%. FAMILY AT BEDSIDE, THEY WERE ABLE TO MEET WITH THE PHYSCIAN TO DISCUSS A SAFE DC PLAN, CURRENTLY PT IS RECOMMENDING HOME WITH HOME HEALTH, WOULD LIKE PATIENT TO GO TO A SNF ON DC TO REGAIN SOME STRENGTH. XAVIER LONGORIAIP NETWORK ARCHITECT STATES SHE WILL GET [facility] TO SEE IF [facility] CAN QUALIFY FOR SOME CAREGIVING HOURS. PATIENT IS RESTING COMFORTABLY. URINE CULTURES CAME BACK, SEE NEW ORDERS FOR IV ABX COVERAGE. PT AND FAMILY DENIES OTHER NEEDS AT THIS TIME. CALL LIGHT IN REACH, WILL CONTINUE TO MONITOR.
[2020-10-15 17:44] LABS: BASOPHILS PERCENT MAN 0 % (0-2); EOSINOPHILS PERCENT MAN 0 % (0-6); LYMPHOCYTES PERCENT MAN 69 % (21-46); MONOCYTES ABSOLUTE MAN 0.65 K/mm3 (0.16-1.47); MONOCYTES PERCENT MAN 6 % (4-13); NEUTROPHILS ABSOLUTE MAN 2.72 K/mm3 (1.96-9.15); SEG NEUTROPHILS PERCENT MAN 25 % (41-73); TOTAL CELLS COUNTED 100
--- NOTE | 2020-10-15 18:14 | NUR ---
PATIENT HAS BEEN REALLY TIRED TODAY, REFUSING TO WORK WITH PT AND SLEEPING MOST OF THE DAY. I WAS ABLE TO TALK THE PATIENT INTO GETTING OOB TO THE CHAIR FOR LUNCH. MIDODRINE WAS PERSCRIBED FOR HYPOTENSION. NO OTHER ACUTE CHANGES, PATIENT IS RESTING COMFORTABLY IN BED, DENIES NEEDS AT THIS TIME. WILL REPORT TO ONCOMING RN.
--- NOTE | 2020-10-15 20:15 | NUR ---
ASSUMPTION OF CARE PT SLEEPING IN BED, EASILY AROUSABLE TO VOICE. PT ALERT AND ORIENTED. DENIES PAIN AT THIS TIME, DOES STATE THAT HE IS "VERY TIRED" AND "GENERALLY NOT FEELING WELL". SPO2 >92% ON 2L NC, BP 111/56, HR 86. PT ABLE TO MOVE SELF AROUND IN BED, DENIES ANY NEEDS AT THIS TIME. WILL CONTINUE TO MONITOR.
[2020-10-16 03:42] LABS: BASOPHILS ABSOLUTE AUTO 0.01 K/mm3 (0.00-0.23); BASOPHILS PERCENT AUTO 0 % (0-2); EOSINOPHILS PERCENT AUTO 0 % (0-6); Hematocrit 25.9 % (37.0-53.0); Hemoglobin 8.5 g/dL (13.5-17.5); Mean Corpuscular HGB 32.1 pg (26.0-34.0); Mean Corpuscular HGB Conc 32.8 g/dL (31.5-36.5); Mean Corpuscular Volume 98 fL (80-100); Mean Platelet Volume 9.8 fL (9.1-12.4); Platelet Count 113 K/mm3 (150-400); RDW Coefficient Variation 18.9 % (11.7-14.2); RDW Standard Deviation 67.3 fL (35.1-46.3); Red Blood Cell Count 2.65 M/mm3 (4.30-5.90); White Blood Cell Count 10.32 K/mm3 (4.00-11.30)
[2020-10-16 03:43] LABS: IMMATURE GRAN ABSOLUTE AUTO 0.06 K/mm3 (0.00-0.10); IMMATURE GRAN PERCENT AUTO 1 % (0-1); LYMPHOCYTES ABSOLUTE AUTO 2.79 K/mm3 (0.84-5.20); LYMPHOCYTES PERCENT AUTO 27 % (21-46); MONOCYTES ABSOLUTE AUTO 4.61 K/mm3 (0.16-1.47); MONOCYTES PERCENT AUTO 45 % (4-13); NEUTROPHILS ABSOLUTE AUTO 2.85 K/mm3 (1.96-9.15); NEUTROPHILS PERCENT AUTO 28 % (41-73)
[2020-10-16 03:57] LABS: Anion Gap 6 mmol/L (6-16); Blood Urea Nitrogen 21 mg/dL (8-24); Bun/Creatinine Ratio 18.6 (12.0-20.0); CO2, Blood 24 mmol/L (21-32); Calcium, Blood 7.1 mg/dL (8.5-10.1); Chloride, Blood 104 mmol/L (98-108); Creatinine, Blood 1.13 mg/dL (0.60-1.20); Glomerular Filtration Rate >60 (60-); Glucose, Blood 91 mg/dL (70-99); Sodium, Blood 134 mmol/L (136-145)
--- NOTE | 2020-10-16 06:09 | NUR ---
SHIFT SUMMARY PT RESTING COMFORTABLY IN BED. DENIES PAIN T/O SHIFT. SPO2 >92% THIS SHIFT ON 2L NC. ALERT AND ORIENTED. COMPLAINING OF BEING "VERY TIRED" THIS SHIFT. PT UP TO BSC ONCE, VERY WEAK NEEDING 2 PERSON ASSIST TO GET BACK TO BED. DENIES ANY NEEDS AT THIS TIME.
--- NOTE | 2020-10-16 08:45 | NUR ---
INITIAL ASSESSMENT: PT IS RESTING IN BED FINISHING UP BREAKFAST. PT IS ALERT AND ORIENTED X3. PT STATES HE IS "REALLY TIRED AGAIN TODAY." PT DENIES PAIN. HRR. LS DIM IN THE BASES. BIOX WNL ON 2L VIA NC. THIS RN ATTEMPTED TO TITRATE PATIENT DOWN TO RA, OXYGEN SATURATIONS DOWN TO 87%, PT PLACED BACK ON 2L VIA NC. WILL ATTEMPT TO TITRATE DOWN THE DAY GOES ON. PT ENCOURAGED TO USE IS Q1 WA. BT+. PPP. PT DENIES NEEDS AT THIS TIME, CALL LIGHT IN REACH. AM MEDS GIVEN WITH A SIP OF WATER, NO SWALLOWING DIFFICULTIES NOTED. PT ENCOURAGED TO GET OOB TODAY FOR MEALS AND TO WORK WITH PT/OT, PT VERBALIZED UNDERSTANDING. CASSI.
--- NOTE | 2020-10-16 10:24 | NUR ---
PT WAS ABLE TO GET OOB AND TAKE A SHOWER. HE IS SITTING UP IN THE RECLINER, PT DENIES NEEDS AT THIS TIME.
--- NOTE | 2020-10-16 13:00 | NUR ---
REPORT GIVEN TO [facility] RN. PATIENT TRANSFERRED TO [facility] VIA RECLINER.
--- NOTE | 2020-10-16 13:23 | NUR ---
ASSUMED CARE OF PATIENT UPON HIS TRANSFER FROM PCU AT 1316, CAME VIA RECLINER. TRANSFERRED TO BED PER IS REQUEST. PLACED ON O2 @ 1 L/MIN NC, HODGES. SKIN WITH SEVERAL SKIN TEARS (BRIDGE OF NOSE, L FOREARM, SPINE), BRUISING ON HIS BACK AND R FOREARM (IV SITE); WEARING MEPILEX ON COCCYX. GIVEN WARM BLANKETS AND TUCKED IN TO BED. CALL LIGHT AND BELONGINGS IN REACH.
--- NOTE | 2020-10-16 18:03 | NUR ---
SHIFT SUMMARY: NO ACUTE EVENTS. O2 @ 2 L/MIN NC TO KEEP O2 SAT > 92%. IS QUITE WEAK AND PALE. SKIN IS VERY FRAGILE, MULTIPLE AREAS OF ECCHYMOSIS AND SKIN TEARS. TOLERATING PO INTAKE. MEDICATED FOR GENERALIZED PAIN WITH ADEQUATE RELIEF.
--- NOTE | 2020-10-16 19:10 | NUR ---
ASSUMED CARE RECEIVED REPORT FROM SWATI PARK. PT ASLEEP, IN NAD. RESPS E/U. NO ACUTE NEEDS ASSESSED AT THIS TIME. CALL LIGHT, POSSESSIONS IN REACH, BED IN LOW AND LOCKED POSITION WITH ALARMS ON.
--- NOTE | 2020-10-16 21:20 | NUR ---
THIS RN SPOKE TO TASHA CALERO REGARDING PT'S CURRENT BP AND AFTERNOON BP'S BEING LOW. ORDERS RECEIVED TO HOLD NIGHT TIME DOSE OF LOPRESSOR AND RE-EVALUATE IN AM.
--- NOTE | 2020-10-17 03:56 | NUR ---
METAL COATER OPERATOR SUMMARY PT A&OX4, ABLE TO MAKE NEEDS KNOWN. NO ACUTE CHANGES IN CONDITION NOTED OVERNIGHT, SLEPT T/O. VS REVIEWED, WNL, BP'S AND 02 SATS STABLE. 2100 BP MEDS HELD. VOIDING ADEQUATE AMOUNT [place]WRENCE YELLOW URINE WITHOUT DIFFICULTY, NO C/O DYSURIA. PT HAS BEEN REPOSITIONING SELF IN BED. NO C/O PAIN. NO ACUTE NEEDS ASSESSED AT THIS TIME. CALL LIGHT, POSSESSIONS IN REACH, BED IN LOW AND LOCKED POSITION WITH ALARMS ON. WILL CONTINUE TO PROVIDE CARE UNTIL REPORT GIVEN TO ONCOMING RN.
--- NOTE | 2020-10-17 15:12 | NUR ---
10/17/20- per chart review with Dr. Mccoy, no plan for d/c at this time. Pt worked with PT yesterday and had the recommendation for SNF. Spoke with daughters and about plans for when pt discharge. They would like him to go to Rehab to get stronger and then if he improves, they would like to him to come home with caregivers/home health. If pt is not well enough to return home, family is looking at various assisted living facilities in the area. -otf
--- NOTE | 2020-10-17 18:08 | NUR ---
SHIFT SUMMARY: NO ACUTE EVENTS. ENCOURAGED PT TO SIT IN CHAIR FOR MEALS; REFUSED FOR BREAKFAST AND DINNER, DANGLED AT BEDSIDE FOR LUNCH, IS QUITE WEAK. USING O2 @ 2 L/MIN NC TO MAINTAIN O2 SAT > 92%; SATS ARE 86-89% ON RA, HE DENIES SOB AT REST. SKIN IS QUITE FRAGILE; MEPILEX ON COCCYX FOR PREVENTION. PO INTAKE IMPROVED TODAY. DENIED PAIN. SBP > 100 THROUGHOUT THE SHIFT, RECEIVING MIDODRINE.
--- NOTE | 2020-10-18 04:50 | NUR ---
SHIFT SUMMARY- PT. A&OX4, CALLS APPROPRIATELY. WEAK, ON 2L NC RA IS BASELINE. PT. APPEARED TO HAVE RESTED COMFORTABLY T/O THE NIGHT, NO APPARENT DISTRESS NOTED. REPOSITIONED PRN, USES URINAL AT BEDSIDE. PT ANTICIPATING D/C TO SNF TODAY. CALL LIGHT WITHIN REACH AND SIDE RAILS UPX2. WILL CONT TO MONITOR.
[2020-10-18 05:04] LABS: BASOPHILS ABSOLUTE AUTO 0.02 K/mm3 (0.00-0.23); BASOPHILS PERCENT AUTO 0 % (0-2); EOSINOPHILS ABSOLUTE AUTO 0.02 K/mm3 (0.00-0.68); EOSINOPHILS PERCENT AUTO 0 % (0-6); Hematocrit 27.5 % (37.0-53.0); Hemoglobin 8.8 g/dL (13.5-17.5); Mean Corpuscular HGB 31.4 pg (26.0-34.0); Mean Corpuscular Volume 98 fL (80-100); Mean Platelet Volume 10.4 fL (9.1-12.4); Platelet Count 109 K/mm3 (150-400); RDW Coefficient Variation 18.2 % (11.7-14.2); White Blood Cell Count 8.57 K/mm3 (4.00-11.30)
[2020-10-18 05:05] LABS: IMMATURE GRAN ABSOLUTE AUTO 0.06 K/mm3 (0.00-0.10); IMMATURE GRAN PERCENT AUTO 1 % (0-1); LYMPHOCYTES ABSOLUTE AUTO 2.67 K/mm3 (0.84-5.20); LYMPHOCYTES PERCENT AUTO 31 % (21-46); MONOCYTES ABSOLUTE AUTO 3.58 K/mm3 (0.16-1.47); MONOCYTES PERCENT AUTO 42 % (4-13); NEUTROPHILS ABSOLUTE AUTO 2.22 K/mm3 (1.96-9.15); NEUTROPHILS PERCENT AUTO 26 % (41-73)
[2020-10-18 05:30] LABS: Alanine Aminotransfer (ALT/SGP 29 U/L (12-78); Albumin, Blood 1.9 g/dL (3.4-5.0); Albumin/Globulin Ratio 0.7 (0.8-1.8); Alk Phos 188 U/L (50-136); Anion Gap 4 mmol/L (6-16); Aspartate Aminotrans (AST/SGOT 26 U/L (12-37); Bilirubin, Total 0.8 mg/dL (0.1-1.0); Blood Urea Nitrogen 24 mg/dL (8-24); Bun/Creatinine Ratio 21.8 (12.0-20.0); CO2, Blood 26 mmol/L (21-32); Calcium, Blood 7.4 mg/dL (8.5-10.1); Chloride, Blood 104 mmol/L (98-108); Globulin, Blood 2.8 g/dL (2.2-4.0); Glomerular Filtration Rate >60 (60-); Glucose, Blood 91 mg/dL (70-99); Potassium, Blood 3.7 mmol/L (3.5-5.5); Sodium, Blood 134 mmol/L (136-145); Total Protein, Blood 4.7 g/dL (6.4-8.2)
--- NOTE | 2020-10-18 14:11 | NUR ---
10/18/20- PER CHART REVIEW WITH DR. HYMAN, PT HAS IMPROVED ENOUGH TO BE TAKEN OFF OF O2 AND HE WORKED WELL WITH PT AND THEIR RECOMMENDATION IS HOME HEALTH. BECAUSE THE RECOMMENDATION HAS CHANGED WITH EACH DAY, DR. HYMAN WOULD LIKE TO HOLD PT AND HAVE PT WORK WITH THE PT TOMORROW TO HELP DETERMINE WHAT THE PT'S BASELINE IS. PT WAS HAVING A GOOD DAY TODAY. -EKTA
--- NOTE | 2020-10-18 16:11 | NUR ---
SHIFT SUMMARY PATIENT DENIES PAIN, NAUSEA, AND SHORTNESS OF BREATH. PATIENT WEANED TO ROOM AIR FROM 2L/NC TODAY. PATIENT SBP IN THE 90'S TODAY, TID MIDORINE GIVEN SCHEDULED. PATIENT WORKED WITH PT. PATIENT UP SBA W/FWW. PATIENT ABULATED IN ARAMBULA WITH STAFF THIS AFTERNOON. EATING AND DRINKING WELL. PLEASANT AND COOPERATIVE WITH CARE. TENTATIVE DISCHARGE PLANNED FOR TOMORROW.
--- NOTE | 2020-10-19 05:26 | NUR ---
SHIFT SUMMARY- NO ACUTE EVENTS OVERNIGHT. PT. STATED FELT VERY TIRED LAST NIGHT. SLEPT T/O THE NIGHT, NO APPARENT DISTRESS NOTED. HAD NO COMPLAINTS OF PAIN OR DISCOMFORT THIS SHIFT. PM LOPRESSOR HELD FOR LOW BP. AM BP MAINTAINED AND STABLE. PT. ON RA, SATS MAINTAINED. DENIED ANY NEEDS T/O THE NIGHT. CALL LIGHT WITHIN REACH AND SIDE RAILS UPX2. WILL CONT TO MONITOR.
--- NOTE | 2020-10-19 11:50 | NUR ---
10/19/20- RECEIVED CALL FROM , SHE STATES THAT SHE RECEIVED A CALL FOR SCHEDULING A CARDIOLOGY APPT IN NOVEMBER FOR THE PT. SHE STATES THAT SHE IS CONFUSED BECAUSE PT IS STILL IN THE HOSPITAL. SHE ALSO SHARED THAT SHE DOES NOT FEEL LIKE SHE CAN CARE FOR THE PT IN THE HOME ANYMORE EITHER DUE TO HIM NOT WANTING TO DO ANYTHING AND SIT IN HIS CHAIR, NOT DRINKING FLUIDS AND REQUIRING MORE CARE THAN SHE IS ABLE TO PROVIDE. SHE REPORTS THAT PT DOES DO BETTER WHEN HE IS BEING CARED FOR BY MEDICAL STAFF. SHE WOULD LIKE TO HAVE HIM COME HOME BUT ONLY IF HE IS STRONGER AND INDEPENDENT OF NEEDING CARE FROM HER. STATED THAT SHE THOUGHT THE IDEA OF HIM GOING TO A SNF IN [place] SOUNDED LIKE A GOOD IDEA BECAUSE HE WILL BE GETTING CARE AND ALSO CLOSER FOR THEIR DAUGHTERS TO VISIT. CALLED DUSTIN WITH [facility]. SHE DOES NOT HAVE ANY BEDS AVAILABLE AND PROBABLY WILL NOT HAVE ONE FOR ANOTHER WEEK OR TWO. IS AGREEABLE TO LOOK FOR SNF PLACEMENT IN [place]. -EKTA
--- NOTE | 2020-10-19 14:40 | NUR ---
PT BP LOW, 82/45 MAP 57. P 59. DENIES SYMPTOMS. CALLED DR ZAMORA, PT SITTING WITH FEET UP ON BED.
--- NOTE | 2020-10-19 15:14 | NUR ---
1445 DR ZAMORA CALLED BACK. BP LIKELY IMPROVE AFTER MIDODRINE. NONEW ORDERS. 1510 BP 96/53 PT STILL ASYMPTOMATIC.
--- NOTE | 2020-10-19 18:02 | NUR ---
PT PLEASANT TODAY. DID HAVE LOW BP TODAY. DISCUSSED WITH DR. BRAXTON GIVEN PER EMAR. PT STATES NO SYMPTOMS FROM THIS. STATES THE PENNIE HOSE TOO UNCOMFORTABLE TO WEAR. TOOK OFF SHORTLY AFTER APPLICATION. NO OTHER NEW CONCERNS NOTED. BED IN LOW POSITION, CALL LITE IN REACH, CALLS APPROP
--- NOTE | 2020-10-19 22:18 | NUR ---
AT 2155, PATIENT FELL TRYING TO GET FROM CHAIR TO BED TRYING TO USE THE ROLLING BEDSIDE TABLE FOR ASSISTANCE. UP UNTIL THIS POINT, THE PATIENT HAD BEEN CALLING APPROPRIATELY FOR ASSISTANCE WITH ALL TRANSFERS. VITAL SIGNS WERE TAKEN PRIOR TO GETTING HIM TO EDGE OF BED. NOTED WAS A DIME SIZE AREA OF BLOOD ON BACK OF HEAD WITH A SMALL HEMATOMA NOTED. BLEEDING HAD ALREADY STOPPED WHEN WOUND WAS FOUND. NO ABRUPT EDGES NOTED ON HEMATOMA. NEURO CHECKS WNL. ONE OF AREAS ON PATIENTS BACK ALREADY BRUISED GOT A SKIN TEAR. THIS AREA WAS COVERED WITH MEPILEX. PATIENT IS ON 5MG ELIQUIS BID. AWAITING RETURN CALL FROM HOSPITALIST. VITAL SIGNS WNL EXCEPT HR NOW 52. WILL CONTINUE CLOSE MONITORING
[2020-10-20 04:57] LABS: BASOPHILS ABSOLUTE AUTO 0.02 K/mm3 (0.00-0.23); BASOPHILS PERCENT AUTO 0 % (0-2); EOSINOPHILS ABSOLUTE AUTO 0.02 K/mm3 (0.00-0.68); EOSINOPHILS PERCENT AUTO 0 % (0-6); Hematocrit 25.9 % (37.0-53.0); Hemoglobin 8.3 g/dL (13.5-17.5); Mean Corpuscular HGB 31.6 pg (26.0-34.0); Mean Corpuscular Volume 99 fL (80-100); Mean Platelet Volume 10.3 fL (9.1-12.4); Platelet Count 117 K/mm3 (150-400); RDW Coefficient Variation 18.1 % (11.7-14.2); RDW Standard Deviation 65.7 fL (35.1-46.3); Red Blood Cell Count 2.63 M/mm3 (4.30-5.90); White Blood Cell Count 9.54 K/mm3 (4.00-11.30)
[2020-10-20 04:58] LABS: IMMATURE GRAN ABSOLUTE AUTO 0.04 K/mm3 (0.00-0.10); IMMATURE GRAN PERCENT AUTO 0 % (0-1); LYMPHOCYTES ABSOLUTE AUTO 3.94 K/mm3 (0.84-5.20); LYMPHOCYTES PERCENT AUTO 41 % (21-46); MONOCYTES ABSOLUTE AUTO 3.73 K/mm3 (0.16-1.47); MONOCYTES PERCENT AUTO 39 % (4-13); NEUTROPHILS ABSOLUTE AUTO 1.79 K/mm3 (1.96-9.15); NEUTROPHILS PERCENT AUTO 19 % (41-73)
[2020-10-20 05:16] LABS: Alanine Aminotransfer (ALT/SGP 38 U/L (12-78); Albumin/Globulin Ratio 0.8 (0.8-1.8); Alk Phos 254 U/L (50-136); Anion Gap 4 mmol/L (6-16); Aspartate Aminotrans (AST/SGOT 34 U/L (12-37); Bilirubin, Total 0.5 mg/dL (0.1-1.0); Blood Urea Nitrogen 22 mg/dL (8-24); Bun/Creatinine Ratio 20.6 (12.0-20.0); CO2, Blood 28 mmol/L (21-32); Calcium, Blood 7.5 mg/dL (8.5-10.1); Chloride, Blood 106 mmol/L (98-108); Creatinine, Blood 1.07 mg/dL (0.60-1.20); Globulin, Blood 2.6 g/dL (2.2-4.0); Glomerular Filtration Rate >60 (60-); Glucose, Blood 90 mg/dL (70-99); Magnesium, Blood 2.1 mg/dL (1.6-2.4); Phosphorus, Blood 3.5 mg/dL (2.5-4.9); Potassium, Blood 3.6 mmol/L (3.5-5.5); Sodium, Blood 138 mmol/L (136-145); Total Protein, Blood 4.6 g/dL (6.4-8.2)
--- NOTE | 2020-10-20 05:18 | NUR ---
PATIENT ALERT AND ORIENTED X3. TOOK FALL EARLIER IN SHIFT AND HIT HEAD ON FLOOR CREATING A SMALL ABRADED AREA SMALL DIME SIZE HEMATOMA. MD INFORMED AND STAT HEAD CT COMPLETED. VITAL SIGNS REMAINED STABLE (HR IN 50'S ALL NIGHT) NO CHANGES IN NEURO CHECK OR ANY COMPLAINTS OF PAIN OR DISCOMFORT OVERNIGHT
--- NOTE | 2020-10-21 04:52 | NUR ---
PATIENT SLEPT WELL OVERNIGHT ONCE HE GOT TO SLEEP. ZEFERINO REQUIRED EARPLUGS IN ORDER TO DO SO. NO COMPLAINTS OF PAIN OR DISCOMFORT. NEURO CHECKS STILL REFLECT NO CHANGE SINCE HIS FALL THE PREVIOUS NIGHT. PATIENT DID REQUEST TYLENOL TO HELP HIM SLEEP HE OCCASIONALLY USES AT HOME FOR THE SAME PURPOSE. BED ALARM ON, BED IN LOW POSITION AND LOCKED. PATIENT USING CALL LIGHT TO MAKE NEEDS KNOWN.
--- NOTE | 2020-10-21 17:42 | NUR ---
SHIFT SUMMARY PT ALERT AND ORIENTED. VS STABLE. BP IMPROVED THIS EVENING. PT ASYMPTOMATIC WITH LOW BP IN THE MIDDLE OF SHIFT. O2 SATS HAVE REMAINED ABOVE 90% ON RA. PT DENIES ANY PAIN TODAY. PT ABLE TO AMBULATE TO BATHROOM AND THROUGH THE AARMBULA THIS SHIFT WITH 1 ASSIST, GAIT BELT, AND FWW. PT CALLING APPROPRIATELY. WILL CONTINUE TO MONITOR AND REPORT TO ONCOMING RN. BED ALARM ON FOR SAFETY.
--- NOTE | 2020-10-22 06:23 | NUR ---
ZEFERINO SLEPT WELL OVERNIGHT WITH ONLY A COMPLAINT OF TOO MUCH HEAT IN THE ROOM. PATIENT IS PLEASANT AND COOPERATIVE WITH CARE. HE CALLED APPROPRIATELY WITH ALL HIS NEEDS AND WAITED ASKED FOR ASSIST. LOOKING FORWARD TO GOING TO REHAB FOR STRENGTHENING THEN ONTO HOME
--- NOTE | 2020-10-22 17:26 | NUR ---
10/22/20- [facility] back from the facilities below, there are no beds available at this time. Contacted [facility], sent back to Em for review. She may have a bed available Wed. or later. Filled out checklist and faxed to Joanna for [facility]. Per chart review with Dr. Her, pt could be d/c to SNF tomorrow if we find a bed for him. Pt's legs were edematous and he will be working on decreasing the swelling prior to d/c. PT and OT have worked with the pt and both therapies are recommending SNF placement. Will contact Joanna with [facility] tomorrow and [place] -otf
--- NOTE | 2020-10-22 18:35 | NUR ---
SHIFT SUMMARY PT ALERT AND ORIENTED IN THE ROOM; USES CALL LIGHT APPROPRIATELY; PT SCARED TO HAVE ANOTHER FALL. PT WORKED WITH PT/OT TODAY. PT DENIES ANY PAIN/ CP/ SOB TODAY. PT GIVEN LASIX FOR EDEMA +1 ON HIS BLE. PT EDUCATED ABOUT THE MEDICATION. PT STATED HE DOES NOT LIKE TAKING LASIX; BUT RN EDUCATE HIM ABOUT THE SIDE EFFECTS. BED ALARM IS ON AND CALL LIGHT WITHIN REACH
--- NOTE | 2020-10-23 04:15 | NUR ---
SHIFT SUMMARY ADMITTED FOR LLL PNEUMONIA, ALSO HAS A UTI. 1800 ML FLUID RESTICTION. FELL 2 DAYS AGO, CT SCAN WNL. ON ELIQUIS. AWAITING PLACEMENT. STRICT I&O'S. CAN BE HYPOTENSIVE AND BRADYCARDIC. BLE 2+ EDEMA. WE ARE DIURESING HIM. HE WAS PREVIOUSLY LIVING WITH HIS AT HOME. HX OF CLL. HE IS COOPERATIVE WITH CARE
[2020-10-23 12:46] LABS: SARS-Cov-2 (COVID-19) PCR, MMC NEGATIVE (NEGATIVE)
[2020-10-23] MEDS ORDERED: ACET325 PO (13:54)
[2020-10-23] MEDS ORDERED: Doxycycline Mo100 M1 PO (13:55)
[2020-10-23] MEDS ORDERED: MIDO5 PO (13:55)
--- NOTE | 2020-10-23 14:36 | NUR ---
10/23/20- PER CHART REVIEW, PT IS STABLE TO D/C TO SNF. PT HAS BEEN APPROVED TO [facility]. WAITING FOR [employer] INSURANCE AUTH. ONCE RECEIVED AUTHORIZATION, WILL BE ABLE TO SE UP TRANSPORTATION. UPDATED DAUGHTER EDWARD, WHO REPORTS THAT SHE AND HER SISTER ARE WORKING WITH THEIR MOM ON GETTING HER TO FILL OUT [employer] TO HELP PAY FOR [employer]ERS. HIS FAMILY IS GOING TO MEET TOMORROW AND LOOK AT FACILITIES THAT IF PT DOES NOT IMPROVE WELL ENOUGH TO GO HOME, THEN THEY WILL HAVE HIM GO TO AN [facility]. WILL SET UP TRANSPORT ONCE INSURANCE AUTH HAS BEEN APPROVED. -EKTA
--- NOTE | 2020-10-24 04:46 | NUR ---
SHIFT SUMMARY ADMITTED FOR LLL PNEUMONIA/UTI/WEAKNESS. DNR CODE. PLAN IS FOR DC TODAY W/HH. HE FELL ON 10/19 - CT NEGATIVE FOR INJURY. HE HAS BEEN WORKING WITH PHYSICAL AND OCCUPATIONAL THERAPY. HE RUNS HYPOTENSIVE AND BRADYCARDIC AT TIMES. MIDODRINE W/PARAMETERS AVAILABLE IN [facility]. HE IS A 1 ASSIST W/FWW & GB - BRP. SKIN IS FRAGILE. HE IS ON ELLIQUIS. HX OF DVT, CLL, AFIB. NO NEW CONCERNS THIS SHIFT
[2020-10-24 05:00] LABS: Hematocrit 27.8 % (37.0-53.0); Hemoglobin 8.7 g/dL (13.5-17.5); Mean Corpuscular HGB 31.4 pg (26.0-34.0); Mean Corpuscular HGB Conc 31.3 g/dL (31.5-36.5); Mean Corpuscular Volume 100 fL (80-100); Mean Platelet Volume 10.1 fL (9.1-12.4); Platelet Count 214 K/mm3 (150-400); RDW Coefficient Variation 18.1 % (11.7-14.2); RDW Standard Deviation 66.4 fL (35.1-46.3); Red Blood Cell Count 2.77 M/mm3 (4.30-5.90); White Blood Cell Count 13.49 K/mm3 (4.00-11.30)
[2020-10-24 05:21] LABS: Alanine Aminotransfer (ALT/SGP 35 U/L (12-78); Albumin, Blood 2.3 g/dL (3.4-5.0); Albumin/Globulin Ratio 0.9 (0.8-1.8); Alk Phos 237 U/L (50-136); Anion Gap 4 mmol/L (6-16); Aspartate Aminotrans (AST/SGOT 25 U/L (12-37); Bilirubin, Total 0.6 mg/dL (0.1-1.0); Blood Urea Nitrogen 21 mg/dL (8-24); Bun/Creatinine Ratio 19.4 (12.0-20.0); CO2, Blood 32 mmol/L (21-32); Calcium, Blood 8.1 mg/dL (8.5-10.1); Chloride, Blood 104 mmol/L (98-108); Creatinine, Blood 1.08 mg/dL (0.60-1.20); Globulin, Blood 2.6 g/dL (2.2-4.0); Glomerular Filtration Rate >60 (60-); Glucose, Blood 81 mg/dL (70-99); Sodium, Blood 140 mmol/L (136-145); Total Protein, Blood 4.9 g/dL (6.4-8.2)
[2020-10-24 06:40] LABS: BASOPHILS ABSOLUTE MAN 0.13 K/mm3 (0.00-0.23); BASOPHILS PERCENT MAN 1 % (0-2); EOSINOPHILS PERCENT MAN 0 % (0-6); LYMPHOCYTES ABSOLUTE MAN 10.25 K/mm3 (0.84-5.20); MONOCYTES ABSOLUTE MAN 0.67 K/mm3 (0.16-1.47); MONOCYTES PERCENT MAN 5 % (4-13); NEUTROPHILS ABSOLUTE MAN 2.42 K/mm3 (1.96-9.15); SEG NEUTROPHILS PERCENT MAN 18 % (41-73); TOTAL CELLS COUNTED 100
[2020-10-24 06:44] LABS: LYMPHOCYTES PERCENT MAN 76 % (21-46)
--- NOTE | 2020-10-24 07:30 | NUR ---
PT STATED FEELING GOOD WOKE EVERY HOUR TO [place] HAS SOME DRIED BLOOD ON HIS PILLOW FROM SCAB TO BACK OF THE HEAD ASKED WHEN HE GOES HOME TODAY
--- NOTE | 2020-10-24 11:07 | NUR ---
dr tam by to see pt ok to discharge home with h/h rx called to [facility]
--- NOTE | 2020-10-24 11:25 | NUR ---
wc escort with transport no acute changes
== END 2020-10-24 11:28 | disposition home health service (06) | DRG 871 ==
LOC: ER 17:29 → PCU 17:30 → MEDS 10-14 16:39
PROVIDERS: Emergency Medicine; Family Medicine; Hospitalist; Internal Medicine; Nurse Practitioner Acute Care; ADMIT Internal Medicine
DX: A41.81 Sepsis due to Enterococcus (principal); J18.9 Pneumonia, unspecified organism; J96.01 Acute respiratory failure with hypoxia; C91.10 Chronic lymphocytic leukemia of B-cell type not having achieved remission; N39.0 Urinary tract infection, site not specified; Z20.822 Contact with and (suspected) exposure to COVID-19; Z79.01 Long term (current) use of anticoagulants; Z66 Do not resuscitate; D63.8 Anemia in other chronic diseases classified elsewhere; D69.6 Thrombocytopenia, unspecified; E88.09 Other disorders of plasma-protein metabolism, not elsewhere classified; I10 Essential (primary) hypertension; I48.0 Paroxysmal atrial fibrillation
CPT/HCPCS: 36415; 70450; 71045; 80048; 80053; 81001; 83605; 83735; 83880; 84100; 84145; 84484; 85025; 87040; 87077; 87086; 87186; 93005; 93010; 94760; 96365; 96376; 97110; 97116; 97162; 97530; 99285-25; A9270; G0378; J0696; J7030; J7050; U0004

== ENCOUNTER 2020-12-26 14:28 | Emergency (ER) | payer OTHER ==
[~2020-12-26] VITALS: Ht 177.8 cm; Wt 72.1 kg
[~2020-12-26 14:28] MED LIST changes: +ACET325 PO; +Doxycycline Mo100 M1 PO; +MIDO5 PO; +PREDNISOLONE SO10 MG PO
[2020-12-26 15:24] LABS: Hematocrit 27.5 % (37.0-53.0); Mean Corpuscular HGB 31.5 pg (26.0-34.0); Mean Corpuscular HGB Conc 32.7 g/dL (31.5-36.5); Mean Corpuscular Volume 96 fL (80-100); Mean Platelet Volume 10.9 fL (9.1-12.4); Platelet Count 141 K/mm3 (150-400); RDW Coefficient Variation 19.6 % (11.7-14.2); Red Blood Cell Count 2.86 M/mm3 (4.30-5.90); White Blood Cell Count 7.76 K/mm3 (4.00-11.30)
[2020-12-26 15:45] LABS: Base Excess Venous -0.3 mmol/L; Bicarbonate Venous 24.4 mmol/L (24.0-30.0); PCO2 Venous 32.9 mmHg (38-42); PO2 Venous 129 mmHg (38-42); pH Blood Venous 7.46 (7.34-7.37)
[2020-12-26 15:57] LABS: Alanine Aminotransfer (ALT/SGP 79 U/L (12-78); Albumin, Blood 2.3 g/dL (3.4-5.0); Albumin/Globulin Ratio 0.9 (0.8-1.8); Alk Phos 382 U/L (50-136); Anion Gap 8 mmol/L (6-16); Aspartate Aminotrans (AST/SGOT 78 U/L (12-37); Bilirubin, Total 1.1 mg/dL (0.1-1.0); Blood Urea Nitrogen 25 mg/dL (8-24); Bun/Creatinine Ratio 23.4 (12.0-20.0); CO2, Blood 22 mmol/L (21-32); Calcium, Blood 8.2 mg/dL (8.5-10.1); Chloride, Blood 105 mmol/L (98-108); Creatinine, Blood 1.07 mg/dL (0.60-1.20); Globulin, Blood 2.7 g/dL (2.2-4.0); Glomerular Filtration Rate >60 (60-); Glucose, Blood 115 mg/dL (70-99); Potassium, Blood 3.8 mmol/L (3.5-5.5); Sodium, Blood 135 mmol/L (136-145); Troponin I <0.015 ng/mL (0.000-0.040)
[2020-12-26 16:46] LABS: BAND PERCENT MAN 1 % (0-8); BASOPHILS PERCENT MAN 0 % (0-2); EOSINOPHILS PERCENT MAN 0 % (0-6); LYMPHOCYTES ABSOLUTE MAN 4.73 K/mm3 (0.84-5.20); LYMPHOCYTES PERCENT MAN 61 % (21-46); MONOCYTES ABSOLUTE MAN 0.31 K/mm3 (0.16-1.47); MONOCYTES PERCENT MAN 4 % (4-13); NEUTROPHILS ABSOLUTE MAN 2.71 K/mm3 (1.96-9.15); SEG NEUTROPHILS PERCENT MAN 34 % (41-73); TOTAL CELLS COUNTED 100
== END 2020-12-26 17:20 | disposition home or self-care (01) ==
LOC: ER 14:28
PROVIDERS: Student in an Organized Health Care Education/Training Program
DX: I47.1 Supraventricular tachycardia (principal); I95.9 Hypotension, unspecified; J90 Pleural effusion, not elsewhere classified; I10 Essential (primary) hypertension; Z79.01 Long term (current) use of anticoagulants; Z79.899 Other long term (current) drug therapy; Z85.72 Personal history of non-Hodgkin lymphomas
CPT/HCPCS: 71046; 80053; 82803; 83605; 84484; 85025; 93005; 93010; 96374; 99285-25; J0153; J7030

== ENCOUNTER 2020-12-31 12:07 | Emergency (ER) | payer OTHER ==
[~2020-12-31] VITALS: Ht 177.8 cm; Wt 72.6 kg
[2020-12-31 12:57] LABS: Hematocrit 32.3 % (37.0-53.0); Hemoglobin 10.5 g/dL (13.5-17.5); Mean Corpuscular HGB 31.7 pg (26.0-34.0); Mean Corpuscular HGB Conc 32.5 g/dL (31.5-36.5); Mean Corpuscular Volume 98 fL (80-100); Mean Platelet Volume 10.3 fL (9.1-12.4); Platelet Count 166 K/mm3 (150-400); RDW Coefficient Variation 20.8 % (11.7-14.2); RDW Standard Deviation 72.4 fL (35.1-46.3); Red Blood Cell Count 3.31 M/mm3 (4.30-5.90); White Blood Cell Count 8.69 K/mm3 (4.00-11.30)
[2020-12-31 13:18] LABS: Anion Gap 6 mmol/L (6-16); Blood Urea Nitrogen 19 mg/dL (8-24); Bun/Creatinine Ratio 17.8 (12.0-20.0); CO2, Blood 27 mmol/L (21-32); Calcium, Blood 7.7 mg/dL (8.5-10.1); Chloride, Blood 103 mmol/L (98-108); Creatinine, Blood 1.07 mg/dL (0.60-1.20); Glomerular Filtration Rate >60 (60-); Glucose, Blood 96 mg/dL (70-99); Potassium, Blood 4.2 mmol/L (3.5-5.5); Sodium, Blood 136 mmol/L (136-145); Troponin I 0.015 ng/mL (0.000-0.040)
[2020-12-31 14:29] LABS: BAND PERCENT MAN 1 % (0-8); BASOPHILS PERCENT MAN 0 % (0-2); EOSINOPHILS PERCENT MAN 0 % (0-6); LYMPHOCYTES % ATYPICAL MANUAL 3 % (0-0); LYMPHOCYTES ABSOLUTE MAN 6.08 K/mm3 (0.84-5.20); LYMPHOCYTES PERCENT MAN 67 % (21-46); MONOCYTES ABSOLUTE MAN 0.17 K/mm3 (0.16-1.47); MONOCYTES PERCENT MAN 2 % (4-13); NEUTROPHILS ABSOLUTE MAN 2.43 K/mm3 (1.96-9.15); SEG NEUTROPHILS PERCENT MAN 27 % (41-73); TOTAL CELLS COUNTED 100
[2020-12-31 14:53] LABS: Free Thyroxine 0.79 ng/dL (0.70-1.60); Triiodothyronine, Free 1.45 pg/mL (2.18-3.98)
[2020-12-31] MEDS ORDERED: FURO20 PO (15:07)
== END 2020-12-31 15:57 | disposition home or self-care (01) ==
LOC: ER 12:07
PROVIDERS: Student in an Organized Health Care Education/Training Program
DX: I47.1 Supraventricular tachycardia (principal); I11.0 Hypertensive heart disease with heart failure; I50.30 Unspecified diastolic (congestive) heart failure
CPT/HCPCS: 71045; 80048; 83735; 83880; 84439; 84443; 84481; 84484; 85025; 93005; 93010; 96374; 96375; 99285-25; J0153; J1940; J7030